=== PATIENT | male | born 1990 | race African-American/Black ===

== ENCOUNTER 2016-12-09 22:02 | Emergency (ER) | payer OTHER ==
--- NOTE | ~2016-12-09 | ER ---
[facility] AGE[facility] 26 Y [address] ROOM: [place] [address] LOCATION: [facility] ADMIT DATE: 12/09/2016 ER/Outpatient Report DISCHARGE DATE: 12/09/2016 FAMILY PHYSICIAN: Physician, Unknown ATTENDING PHYSICIAN: Jerrell Daniel TIME OF PATIENT ARRIVAL: 2202 hours. TIME OF PATIENT EVALUATION: 2202 hours. CHIEF COMPLAINT: Hand laceration. HISTORY OF PRESENT ILLNESS: This is a 24-year-old, male, who presents to the ER with a hand laceration that happened just prior to arrival. The patient reports he was messing around with a kitchen knife and it slipped and cut his right hand between his thumb and the pointer finger. He has no numbness or tingling. He states that he is up-to-date on his tetanus shot. He denies any other problems at this time. ALLERGIES: NO KNOWN ALLERGIES. MEDICATIONS: None. PAST MEDICAL HISTORY: Negative. PAST SURGICAL HISTORY: None. SOCIAL HISTORY: Smokes half pack a day for the last 5 years. He did drink some alcohol today. REVIEW OF SYSTEMS: CONSTITUTIONAL: Denies any change in weight or fatigue. MUSCULOSKELETAL: No weakness or myalgias. HEMATOLOGIC: No easy bruising or bleeding. SKIN: Has a laceration to his right hand. PHYSICAL EXAMINATION: PATIENT'S NAME: MYRTLE GOODE [facility] AGE: 26 Y [address] ROOM: [place] [address] LOCATION: [facility] ADMIT DATE: 12/09/2016 ER/Outpatient Report DISCHARGE DATE: 12/09/2016 FAMILY PHYSICIAN: Physician, Unknown ATTENDING PHYSICIAN: Jerrell Daniel VITAL SIGNS: Blood pressure is 177/111, pulse 103, respirations 16, and saturations 98% on room air. Olu Coma Score is 15. GENERAL: Alert, very anxious, 26-year-old, in mild distress. HEENT: Head; normocephalic. He does display moist mucous membranes. LUNGS: Clear to auscultation bilaterally. HEART: Slightly tachycardic. Normal rhythm. EXTREMITIES: No clubbing or cyanosis. He does have full range of motion of his right hand. He has good strength in his right thumb and index finger. He has good sensation distally. Good capillary refill distally. SKIN: He has a 1.5 cm laceration to the web of his right hand between his thumb and index finger. LABORATORY DATA AND IMAGING STUDIES: Laboratories: None were done. X-rays: None were done. IMPRESSION: Right hand laceration. ASSESSMENT AND PLAN: We did assist the PA student with laceration repair. She did numb the site with 1% lidocaine. Cleansed the site thoroughly with Betadine, flushed out with normal saline, and repaired the laceration using 4-0 Ethilon. The patient did tolerate all of this well. We did place antibiotic ointment and bandage to the hand. We will dismiss him to home. He may take Tylenol or ibuprofen if needed. We will send him home with a wound care handout. He needs to follow up with his primary care physician or urgent care in 7 to 10 days for suture removal. The patient understands and agrees with care. LYLE WHALEY PA-C FOR MD IRENE PRIDE/gab /[id number] d: t: 12/15/16 1236, OUTPATIENT REPORT
== END 2016-12-09 22:49 | disposition disaster alternative care site (69) ==
LOC: GACC 22:02
PROC: 0HQFXZZ Repair Right Hand Skin, External Approach (ICD-10-PCS; principal; 2016-12-09)
DX: S61.411A Laceration without foreign body of right hand, initial encounter (principal); F17.210 Nicotine dependence, cigarettes, uncomplicated; W26.0XXA Contact with knife, initial encounter